=== PATIENT | female | born 1940 | race Caucasian/White ===

== ENCOUNTER → 2020-02-15 14:40 | Outpatient (CLI) | payer MEDICARE, OTHER, SELFPAY ==
--- NOTE | 2020-02-15 | DI.MRI.S_ITS ---
PROCEDURE: MR CERVICAL SPINE WO CON INDICATIONS: RADICULOPATHY, CERVICAL REGION TECHNIQUE: Noncontrast sagittal T1 spin echo and T2 fast spin echo, sagittal STIR, foraminal oblique sagittal T2 fast spin echo, and axial gradient echo or T2 fast spin echo through the cervical spine. COMPARISON: None. FINDINGS: Image quality: Excellent. Alignment and Curvature: There is loss of normal cervical lordosis. There is mild, grade 1 retrolisthesis of C2 on C3, C5 on C6, and C6 on C7. There is mild grade 1 anterolisthesis of C7 on T1 and T1 on T2. Bone Marrow: Marrow demonstrates normal overall signal. There is moderate reactive signal within the endplates adjacent to the C5-C6 and C6-C7 intervertebral discs. Mild reactive signal within the endplates adjacent to the C2-C3, C3-C4, and C4-C5 intervertebral discs. Spinal Cord: Visualized spinal cord has normal size and signal. No cerebellar tonsillar herniation. Paraspinous Soft Tissues: No paravertebral masses. Prevertebral soft tissues are normal in thickness. C2-C3: Congenital canal stenosis. There is moderate disc desiccation and moderate diffuse disc bulge with superimposed left paracentral protrusion. Mild facet and uncovertebral hypertrophy bilaterally. Moderate to severe canal stenosis. Minimal left cord flattening. Mild bilateral foraminal stenosis. C3-C4: Congenital canal stenosis. Moderate disc height loss and desiccation. Moderate diffuse disc bulge with superimposed small central protrusion and annular tear. Moderate facet and uncovertebral hypertrophy bilaterally. There is severe canal stenosis, mild cord flattening, and moderate bilateral foraminal stenosis, left greater than right. C4-C5: Congenital canal stenosis. Moderate disc height loss and desiccation. Mild diffuse disc bulge. Congenital canal stenosis. Moderate facet and uncovertebral hypertrophy bilaterally. Severe canal stenosis. Mild cord flattening. Severe left and moderate right foraminal stenosis. Left C5 nerve root compression. C5-C6: Congenital canal stenosis. Severe disc height loss and desiccation. Moderate diffuse disc bulge/osteophyte. Moderate facet and uncovertebral hypertrophy bilaterally. Severe canal stenosis. Moderate cord flattening. Severe bilateral foraminal stenosis. Bilateral C6 nerve compression. C6-C7: Congenital canal stenosis. Moderate disc height loss and desiccation. Moderate diffuse disc bulge. Moderate facet and uncovertebral hypertrophy bilaterally. Moderate to severe canal stenosis. Minimal anterior cord flattening. Severe bilateral foraminal stenosis. Bilateral C7 nerve root compression. C7-T1: Congenital canal stenosis. Moderate disc height loss and desiccation. Mild diffuse disc bulge. Mild facet and uncovertebral hypertrophy bilaterally. Moderate canal stenosis. Moderate right and mild left foraminal stenosis. IMPRESSION: 1. Diffuse congenital canal stenosis, with superimposed disc and facet disease, as well as uncovertebral hypertrophy. 2. Multilevel canal stenoses, with associated cord flattening at C2-C3, C3-C4, C4-C5, C5-C6, and C6-C7. 3. Multilevel foraminal stenoses, worst at C4-C5, C5-C6, and C6-C7, where there is associated intraforaminal nerve root compression. Recommend correlation with clinical symptoms to ascertain relevance of these findings. Dictated by: Maya Downey M.D. on 02/17/2020 at 8:29 Approved by: Maya Downey M.D. on 02/17/2020 at 8:41
== END ==
PROVIDERS: PCP Registered Nurse; Referring Provider Physical Medicine & Rehabilitation; Visit Provider Physical Medicine & Rehabilitation
DX: M50.11 Cervical disc disorder with radiculopathy, high cervical region (principal); M48.02 Spinal stenosis, cervical region
CPT/HCPCS: 72141

== ENCOUNTER → 2020-04-17 13:18 | Outpatient (CLI) | payer MEDICARE, OTHER, SELFPAY ==
[2020-04-18 18:25] LABS: COVID19 Sendout Not Detected (Not Detect)
== END ==
PROVIDERS: PCP Registered Nurse; Visit Provider Physician Assistant
DX: Z11.9 Encounter for screening for infectious and parasitic diseases, unspecified (principal)
CPT/HCPCS: 87635

== ENCOUNTER 2020-04-20 06:09 | Inpatient (IN) | payer MEDICARE, OTHER, SELFPAY ==
[2020-04-13 12:56] VITALS: BMI 23.1
[2020-04-20] VITALS (12 sets, daily range): BP systolic 118–166; BP diastolic 49–81; PULSE 79–95; RESP 10–17; TEMP 36.1–36.7; O2SAT 91–100; BMI 22.1
--- NOTE | 2020-04-20 | DI.RAD.S_ITS ---
PROCEDURE: XR CERVICAL SPINE 2V OR 3V INDICATIONS: ACDF C3-4 C4-5 C5-6 C6-7 TECHNIQUE: 3 view(s) of the cervical spine were acquired. COMPARISON: None. FINDINGS: Bones: Postoperative digital acquisition imaging shows C3 through C7 anterior fixation plate with transverse vertebral body screws at each of the intervening vertebral levels, with additional placement of interbody disc prosthesis from C3-4 through C6-7. Soft tissues: No prevertebral soft tissue swelling. IMPRESSION: No operative complication seen on this limited evaluation that clearly visualizes the C7 level fixation only on the frontal projection. Interbody disc prosthesis devices seen at the intervening disc levels and appear normally positioned where well seen. Dictated by: Andrew Styles M.D. on 04/20/2020 at 11:27 Approved by: Andrew Styles M.D. on 04/20/2020 at 11:30
[2020-04-20] MEDS: LACTATED RINGERS 1,000 ML 42 ML IV ×2 (07:00→09:47)
[2020-04-20] MEDS: CEFAZOLIN 2 GM/100 ML FROZ.PIGGY IV (07:00)
--- NOTE | 2020-04-20 07:40 | PM.PREOP ---
Pre-operative Note COVID-19 COVID-19 status: Negative Result date/Date tested (Pos, Neg/Pending): 04/18/20 Interval Note History & Physical reviewed/Exam performed by Physician: Yes Changes to H&P: No
--- NOTE | 2020-04-20 08:21 | SUR.OPER ---
Supine, head on gel donut. Arms padded with gel pads, tucked at sides, towel roll under shoulders. Safety belt at thigh. Legs uncrossed.
[2020-04-20] MEDS: BUPIVACAINE 0.25% W/ EPI 30 ML VIAL INJ (08:34)
--- NOTE | 2020-04-20 11:21 | P.OP_ITS ---
Operative Date/Time/Diagnoses Date of procedure: 04/20/20 Time of procedure: 08:21 Pre-op diagnosis: 1. C3-4, C4-5, C5-6, C6-7 spinal stenosis 2. C3-4, C4-5, C5-6, C6-7 spondylosis with radiculopathy Post-op diagnosis: same Procedure & Clinicians Procedure: 1. C3-4 C4-5 C5-6 C6-7 anterior cervical diskectomy and fusion 2. C3-4 C4-5 C5-6 C6-7 anterior interbody cage placement 3. C3-4 C4-5 C5-6 C6-7 anterior instrumentation with plate and screw placement in C3-C4-C5-C6 and C7 vertebrae 4. Utilization of microsurgical technique and operating microscope Same procedure as scheduled: Yes Indications: Patient has been having chronic neck pain and worsening cervical radiculopathy. Patient failed multiple conservative management with worsening pain weakness and numbness in her upper extremity. Patient has been having difficulty performing activity of daily living. After discussing risks benefits of treatment options, patient elected proceed with surgery. Surgeon: Zachary Angel [employer] Manager: Rod Kumar Click Yes if Unassisted: No Anesthesia Type: General Operative Notes Closure Type: primary Specimen(s): none sent Prosthetic devices, grafts, tissues, transplants, or devices: Globus extend plate, PEEK cages Estimated Blood Loss (mL): 50 Blood products transfused: none Procedure in detail: Using lateral C-arm imaging, the level between C3 and C7 was identified and marked on patient's neck. A oblique incision from midline towards medial border of sternocleidomastoid muscle was made. The platysma muscle was incised in line with skin incision. Metzenbaum scissor was used to develop the plane between the medial border of sternocleidomastoid d and the strap muscles medially. The carotid sheath and its contents were identified and protected behind the hand-held retractor during the entire case. The plane between the carotid sheath and strap muscles was developed with Metzenbaum scissors. Dissection was made down to the level of the anterior cervical fascia. Longus colli muscle was incised on the anterior aspect of vertebral bodies bilaterally from C3-C7. Spinal needle was placed into the C4-5 disc space and confirmed with lateral C-arm imaging. Using microsurgical technique and operative microscope, anterior cervical diskectomy was performed at C3-4 C4-5 C5-6 and C6-7 level. This was done by removing the disc material, removing the anterior and posterior osteophytes posterior longitudinal ligaments along with performing bilateral foraminotomies at all 4 levels. Patient was found to have severe central and foraminal stenosis at all 4 levels. Patient's stenosis was fully decompressed after dec ompression was completed. After the diskectomy was completed, 4 anterior interbody cages were obtained. The cages were packed with DBM bone grafting material. One cage each along with the bone grafting material was then packed into the interbody spaces from C3-C7 with 1 cage into each interbody level. After the cages were placed, the anterior cervical plate was stabilized to the C3-C7 vertebrae using 2 screws at each each level. Total 10 screws were placed. After confirming placement of the hardware with AP and lateral C-arm imaging, the screws were locked into the plate using the locking mechanism and torque limiting screwdriver. After the hardware was placed and confirmed with AP and lateral C-arm imaging, the wound was irrigated with sterile normal saline. The platysma muscle and the subcutaneous tissue was closed with 2-0 Vicryl. The skin was closed with 4-0 Monocryl and Steri-Strips. Patient tolerated the procedure well. Patient was transferred recovery room in stable condition. There were no complications. Complications: none Post-operative Condition: stable Disposition: PACU Plan for aftercare: Admit to inpatient hospital
[2020-04-20] MEDS: SODIUM CHLORIDE 0.9% 1,000 ML 100 ML IV (12:29)
[2020-04-20] MEDS: OXYCODONE IR 5 MG TABLET PO (12:45)
[2020-04-20] MEDS: ACETAMINOPHEN 325 MG TABLET 650 MG PO (12:46)
[2020-04-20] MEDS: CEFAZOLIN 1 GM/50 ML FROZ.PIGGY IV ×2 (14:48→22:15)
--- NOTE | 2020-04-20 15:10 | PT.IIE ---
Current Diagnoses Other spondylosis with myelopathy, cervical region (04/20/20) Spinal stenosis, cervical region (04/20/20) Surgery Performed Operation Date: 04/20/20 07:45 Actual Procedures p C3-4, C4-5, C5-6, C6-7 ACDF w/ instrumentation - Zachary Angel MD Surgical History (Last Updated 04/13/20 @ 13:14 by Ghazal Santacruz RN) History of carpal tunnel surgery of right wrist (Acute) Hx of appendectomy (Acute) Hx of bilateral cataract extraction (Acute) Hx of tonsillectomy (Acute) Hx of tubal ligation (Acute) Medical History (Last Updated 04/13/20 @ 13:14 by Ghazal Santacruz RN) Arthritis (Acute) Easy bruisability (Acute) History of trigger finger (Acute) HLD (hyperlipidemia) (Acute) HTN (hypertension) (Acute) PAF (paroxysmal atrial fibrillation) (Acute) Sciatica (Acute) Vulvar cancer (Acute) Physical Therapy Inpatient Evaluation/Re-Eval M1 PT/OT-IP Prior Functional Status Start: 04/20/20 12:57 Freq: NEEDED Status: Active Protocol: Document 04/20/20 14:40 AW (Rec: 04/20/20 15:10 AW [id number]) Medical Review Prior Functional Status Medical History Reviewed Yes Communication No known deficits. Mobility and Gait Pt is right handed. She ambulated independently at baseline without meaningful limitation. Activities of Daily Living and IADL's IND Prior Functional Level (Other details) Pt is an active boom truck driver. Social History Household Members spouse Living Arrangements House Number of Floors (Floors) One Floor Number of Stairs To Enter/Railing? 3 HERNAN with wide bilateral rails Home Environment Standard Height Toilet,Walk in Shower Home Equipment Hand Held Shower Employment Status Retired Additional Social History Comment Pt lives with her , Viraj, who is also retired. He will be available and able to assist as needed when pt discharges. M2 PT-IP Current Condition Start: 04/20/20 12:57 Freq: NEEDED Status: Active Protocol: Document 04/20/20 14:40 AW (Rec: 04/20/20 15:10 AW [id number]) Physical Therapy Current Condition Current Condition Evaluation Date 04/20/20 Treatment Diagnosis C3-7 ACDF; difficulty in walking; impaired self-care Onset Date 04/20/20 Precautions Anterior Hip Precautions No Hip Extension Cervical Spine Precautions Soft Collar for Comfort,No Heavy Lifting,Log Roll Brace soft collar for comfort M3 PT-IP Subjective Start: 04/20/20 12:57 Freq: NEEDED Status: Active Protocol: Document 04/20/20 14:40 AW (Rec: 04/20/20 15:10 AW [id number]) Subjective Physical Therapy Visit Type Type Initial Evaluation Visit Start Time 13:36 Visit Stop Time 13:59 Total Visit Minutes 23 Notes Pt's spouse was present throughout evaluation Physical Therapy Visit Comments Patient Comments Pt is feeling foggy but willing to work with PT Patient Goals Pt hopes to go home and regain full use of her hands Therapy Pain Assessment Pain When Pain Assessed During Mobility Pain Present Pain Present Pain Reported Location Neck Intensity 3 Scale Used Numeric (0 - 10) Pain Behaviors Facial Grimacing,Wincing Pain Management Techniques Re-positioning,Timing of Activity with Medications M4 PT-IP Mobility and Gait Start: 04/20/20 12:57 Freq: NEEDED Status: Active Protocol: Document 04/20/20 14:40 AW (Rec: 04/20/20 15:10 AW [id number]) PT-Bed Mobility Assessment Rolling Type of Rolling Log Rolling,Roll to Right Level of Assist Contact Guard Assistance Supine to Sit Supine to Sit Contact Guard Assistance Sit to Supine Sit to Supine Contact Guard Assistance Scooting Scooting to Edge of Bed Standby Assistance PT-Transfer Assessment Sit to and From Stand Sit to and from Stand Contact Guard Assistance Equipment Transfer Assistive Device Gait Belt Orthotic/Prosthetic Devices or Brace: Yes Transfers Transfer Destination Bed Transfer Technique pt ambulated without AD Transfer Ability Level of Assist Contact Guard Assistance,1 Person Assistance,Use of Upper Extremities Comments Mobility Comments Pt was reclined in the bed when PT arrived. She was able to tolerate lying flat. Supine BP was 162/76 HR 83. She completed log roll to her right side CGA and cues for sequencing; she completed sidelying to sit CGA without complaint of increased pain. Pt did reports mild lightheadedness in sitting. BP was 162/78 HR 88. She was able to stand at the edge of the bed but immediately reached for this PT's arm to steady herself. PT provided CGA as pt ambulated to the sink where she was provided instruction in donning and doffing the soft collar. Pt stated her lightheadedness was persisting and requested return to bed. She walked back to the bed with CGA and sat EOB. BP after 2 minutes sitting was 156/84. She completed sit to supine CGA and was repositioned in the bed with call light and all needs in reach, spouse at the bedside. Gait Assessment Gait Gait Assistance Required: Contact Guard Assist Distance (Feet) 10 Assistive Devices Assistive Device Gait Belt Gait Deviations General Gait Pattern Antalgic,Decreased Stride Length,Decreased Feet Clearance,Flexed Trunk,Lateral Trunk Lean Factors Limiting Gait Function Factors Limiting Gait Function Decreased Activity Tolerance, Decreased Sensation,Decreased Strength,Limited Range of Motion,Pain,Poor Balance,Poor Safety Awareness Comments Gait Comments Pt required CGA at all times for short bout ambulation without AD. See mobility comments for details. Stair Climbing Assessment Comments Stair Climbing Comments Not assessed. PT-Balance Assessment Sitting Balance and Reactions Static Sitting Balance Ability Normal Dynamic Sitting Balance Ability Normal Standing Balance and Reactions Static Standing Balance Ability Fair Dynamic Standing Balance Ability Fair Device Used no AD M5 PT-IP Objective Assessments Start: 04/20/20 12:57 Freq: NEEDED Status: Active Protocol: Document 04/20/20 14:40 AW (Rec: 04/20/20 15:10 AW [id number]) Orientation Orientation/Cognition Level of Alertness Lethargic Orientation Name,Day of Week,Place, Situation Language Function Ability No Deficits Noted Safety Awareness Decreased Safety Awareness Comments Pt oriented but lethargic, occasionally having difficulty keeping her eyes open. Gross Range of Motion Upper Extremity ROM Assessment Within Functional Limits Lower Extremity ROM Assessment Within Functional Limits Strength Upper Extremity Strength Assessment Within Functional Limits Lower Extremity Strength Assessment Within Functional Limits Coordination Assessment Gross Coordination Gross Coordination WNL Sensation Assessment Sensation Gross Sensation Right UE Impaired Light Touch Impaired Sensation Description Numbness Comments Sensation Comments Pt reports dull light touch sensation to right hand, especially the ulnar digits. Muscle Tone Muscle Tone WNL Yes M6 PT-IP Treatment Start: 04/20/20 12:57 Freq: NEEDED Status: Active Protocol: Document 04/20/20 14:40 AW (Rec: 04/20/20 15:10 AW [id number]) Physical Therapy Treatment Education Education Provided Precautions,Post-Op Packet, Safety Brace Education Donning,[place],Patient Other Treatments Other Treatment Performed Provided education on role of PT and plan of care. Pt was left with handout detailing swallow concerns after cervical surgery and symptoms that should be reported to the surgeon. Pt was taught to don and doff the soft collar using mirror for visual feedback. M7 PT-IP Assessment and Plan Start: 04/20/20 12:57 Freq: NEEDED Status: Active Protocol: Document 04/20/20 14:40 AW (Rec: 04/20/20 15:10 AW [id number]) PT Summary Assessment and Plan Potential Rehabilitation Potential Good Status of Condition at Evaluation Evolving Summary Impairments Pain,ROM,Balance,Sensation,Bed Mobility,Transfers,Gait, Activity Tolerance Assessment Summary Sujatha is a 80 yo woman seen for PT evaluation on POD0 following C3-4 C4-5 C5-6 C6-7 ACDF. She is independent in all regards at baseline. She lives with her spouse who is retired and able/available to assist as needed at discharge. On evaluation, pt was groggy and had difficulty attending to task at times but was redirectable. She required CGA for all mobility but is expected to progress enough during her hospital stay to discharge home safely with her spouse assisting. Goals Bed Mobility Goal Standby Assistance Transfer Goal Standby Assistance Gait Goal Standby Assistance Gait Distance 150 Other Goals - up/down 3 stairs with unilateral rail SBA Days to Meet Goals 2 Frequency of Treatment Frequency Of Treatment Twice a Day Treatment Plan Physical Therapy Treatment Plan Bed Mobility Training,Transfer Training,Gait Training, Therapeutic Exercise,Balance Retraining,Post Op Education, Discharge Planning,Hot or Cold Pack,Neuromuscular Re-ed Other Recommendations and Next Treatment review precautions, review Focus donning/doffing soft collar; progress gait and assess for possible AD needs; assess safety on stairs Recommendations To Nursing Amount of Assist Needed 1 Person Assist Discharge Recommendations PT Discharge Recommendations Home with Assistance Transportation Needs at Discharge Private Vehicle
--- NOTE | 2020-04-20 15:25 | PC.NURSE ---
Post-op: Late entry Arrived to room 221 at 1205. Awake and alert, oriented X3. VSS, room air. Dressing to anterior neck C/D/I, soft collar in place PRN for comfort. CMS+, denied paresthesias. Medicated with Tylenol and Oxycodone per e-mar, which she reported was effective for pain management. Swallowed without difficulty, pain or s/sx aspiration. Tolerating PO's without N/V. Nguyen patent to gravity, urine clear yellow. SCD's to bilateral feet. Oriented to room and call light and encouraged to make needs known. Call light and belongings within reach, bed alarm on.
[2020-04-20] MEDS: SENNOSIDES 8.6 MG TABLET 17.2 MG PO (20:51)
[2020-04-20] MEDS: SIMVASTATIN 20 MG TABLET PO (20:51)
[2020-04-20] MEDS: DOCUSATE 100 MG CAPSULE PO (20:51)
[2020-04-20] MEDS: AMITRIPTYLINE 10 MG TABLET PO (20:51)
[2020-04-20] MEDS: LATANOPROST 0.005% OPHTH 2.5 ML 1 DROPS EYE-BOTH (20:57)
[2020-04-21 00:14] VITALS: BP 131/63; PULSE 85; RESP 16; TEMP 36.3; O2SAT 96
[2020-04-21 05:03] VITALS: BP 138/70; PULSE 73; RESP 16; TEMP 36.3; O2SAT 97
--- NOTE | 2020-04-21 05:48 | PC.NURSE ---
Addendum entered by Vangie Dowell R.N. 04/21/20 05:54: Pt drsg to back is CDI Original Note: Pt has declined offers of pain medication so far this shift. Moving independently in bed, falk patient.
[2020-04-21] MEDS: OXYCODONE IR 5 MG TABLET PO ×2 (07:16→11:14)
[2020-04-21] MEDS: ACETAMINOPHEN 325 MG TABLET 650 MG PO (07:16)
[2020-04-21 07:40] VITALS: BP 142/66; PULSE 80; RESP 18; TEMP 36.6; O2SAT 97
[2020-04-21] MEDS: lisinopriL 10 MG TABLET PO (09:04)
[2020-04-21] MEDS: DOCUSATE 100 MG CAPSULE PO (09:04)
--- NOTE | 2020-04-21 09:42 | OT.IP.EVAL ---
Current Diagnoses Other spondylosis with myelopathy, cervical region (04/20/20) Spinal stenosis, cervical region (04/20/20) Surgery Performed Operation Date: 04/20/20 07:45 Actual Procedures p C3-4, C4-5, C5-6, C6-7 ACDF w/ instrumentation - Zachary Angel MD Past Medical History (Last Updated 04/13/20 @ 13:14 by Ghazal Santacruz, RN) Arthritis (Acute) Easy bruisability (Acute) History of trigger finger (Acute) HLD (hyperlipidemia) (Acute) HTN (hypertension) (Acute) PAF (paroxysmal atrial fibrillation) (Acute) Sciatica (Acute) Vulvar cancer (Acute) Surgical History (Last Updated 04/13/20 @ 13:14 by Ghazal Santacruz RN) History of carpal tunnel surgery of right wrist (Acute) Hx of appendectomy (Acute) Hx of bilateral cataract extraction (Acute) Hx of tonsillectomy (Acute) Hx of tubal ligation (Acute) Occupational Therapy Inpatient Evaluation/Re-Eval M1 PT/OT-IP Prior Functional Status Start: 04/20/20 12:57 Freq: NEEDED Status: Active Protocol: Document 04/20/20 14:40 AW (Rec: 04/20/20 15:10 AW [id number]) Medical Review Prior Functional Status Medical History Reviewed Yes Communication No known deficits. Mobility and Gait Pt is right handed. She ambulated independently at baseline without meaningful limitation. Activities of Daily Living and IADL's IND Prior Functional Level (Other details) Pt is an active truck driver flatbed. Social History Household Members spouse Living Arrangements House Number of Floors (Floors) One Floor Number of Stairs To Enter/Railing? 3 HERNAN with wide bilateral rails Home Environment Standard Height Toilet,Walk in Shower Home Equipment Hand Held Shower Employment Status Retired Additional Social History Comment Pt lives with her , Viraj, who is also retired. He will be available and able to assist as needed when pt discharges. M1 PT/OT-IP Prior Functional Status Start: 04/21/20 10:38 Freq: NEEDED Status: Active Protocol: Document 04/21/20 09:58 CCC (Rec: 04/21/20 10:50 CCC [email or web address]) Medical Review Prior Functional Status Medical History Reviewed Yes Communication No known deficits. Mobility and Gait Pt is right handed. She ambulated independently at baseline without meaningful limitation. Activities of Daily Living and IADL's IND Prior Functional Level (Other details) Pt is an active truck driver flatbed. Social History Household Members spouse Living Arrangements House Number of Floors (Floors) One Floor Number of Stairs To Enter/Railing? 3 HERNAN with wide bilateral rails Home Environment Standard Height Toilet,Walk in Shower Home Equipment Hand Held Shower Employment Status Retired Additional Social History Comment Pt lives with her , Viraj, who is also retired. He will be available and able to assist as needed when pt discharges. M2 OT-IP Current Condition Start: 04/21/20 10:38 Freq: Status: Active Protocol: Document 04/21/20 09:58 [facility] (Rec: 04/21/20 10:50 [facility] [id number]) Occupational Therapy Current Condition Current Condition Evaluation Date 04/21/20 Treatment Diagnosis Spinal stenosis, s/p C3-4, c4- 5, c5-6 ,C6-7 ACDF Diagnosis Onset Date 04/20/20 Post Operative Precautions Cervical Spine Precautions Soft Collar for Comfort,No Heavy Lifting,Log Roll M3 OT- IP Subjective and Pain Start: 04/21/20 10:38 Freq: Status: Active Protocol: Document 04/21/20 09:58 [facility] (Rec: 04/21/20 10:50 [facility] [id number]) OT- Subjective Occupational Therapy Visit Type Type Initial Evaluation Visit Start Time 09:42 Visit Stop Time 09:57 Total Visit Minutes 15 Occupational Therapy Visit Comments Patient Comments Pt already up in the room when OT came to see pt. Patient/Caregiver Goals To go home. OT Pain Assessment Pain When Pain Assessed At Rest Pain Present Pain Present Denied Pain M4 OT- IP ADL's Start: 04/21/20 10:38 Freq: Status: Active Protocol: Document 04/21/20 09:58 [facility] (Rec: 04/21/20 10:50 [facility] [id number]) OT [id number] General Evaluation Self-Feeding Ability Independent Comments OT Self-Feeding Comments Educated to sit upright more and chew food thoroughly, information given to pt regarding swallowing needs/ suggestions after ACDF sx. OT ADL-Dressing General Eval Upper Body Dressing Ability Independent Lower Body Dressing Ability Independent OT ADL-Bathing Comments OT Bathing Comments Went over information to shower from chest dwon, or able to put soft collar in the dryer if wet. Otherwise can assist to wash her hair with the [facility]. M5 OT- IP IADL's Start: 04/21/20 10:38 Freq: Status: Active Protocol: Document 04/21/20 09:58 [facility] (Rec: 04/21/20 10:50 [facility] [id number]) OT-Instrumental Activities of Daily Living Home Safety Awareness Awareness of Need for Assistance at Home Good Awareness Ability to Problem Solve Emergency Able to Problem Solve Situations Medication Management Medication Management Comments Pt aware to have her assist as needed. Money Management Money Management Comments Pt aware to have her assist as needed. Meal Preparation Meal Preparation Caregiver Provides Assist Title One Teacher Title One Teacher Caregiver Provides Assist M6 OT- IP Functional Cognition Start: 04/21/20 10:38 Freq: Status: Active Protocol: Document 04/21/20 09:58 [facility] (Rec: 04/21/20 10:50 [facility] [email or web address]) Cognitive Factors Limiting Selfcare Function Cognitive Ability Level of Alertness Alert Patient Orientation Name,Age,Birthday,Month,Date, Year,Day of Week,Place, Situation Attention Span Ability Capable of Focused Attention, Capable of Sustained Attention Ability to Follow Commands Able to Follow Multi-Step Commands Memory Description No Deficits Noted Safety Awareness Decreased Ability to Apply Precautions Cognitive Comments Cognitive Assessment Comments Pt a bit impulsive and needing cues to slow down and thinks things through before moving. M7 OT- IP Mobility and Balance Start: 04/21/20 10:38 Freq: Status: Active Protocol: Document 04/21/20 09:58 [facility] (Rec: 04/21/20 10:50 [facility] [email or web address]) OT-Transfer Assessment Sit to and From Stand Sit to and from Stand Independent Transfers Transfer Ability Standby Assistance Comments Mobility Comments Mainly distant SBA, vc to slow down. OT- Balance Assessment Sitting Balance and Reactions Static Sitting Balance Ability Normal Dynamic Sitting Balance Ability Normal Standing Balance and Reactions Static Standing Balance Ability Normal Dynamic Standing Balance Ability Good M8 OT- IP Objective Assessments Start: 04/21/20 10:38 Freq: Status: Active Protocol: Document 04/21/20 09:58 [facility] (Rec: 04/21/20 10:50 [facility] [email or web address]) OT-Muscle Tone Assessment Muscle Tone WNL Yes M9 OT- IP Assessment and Plan Start: 04/21/20 10:38 Freq: Status: Active Protocol: Document 04/21/20 09:58 [facility] (Rec: 04/21/20 10:50 [facility] [email or web address]) OT Summary Assessment and Plan Potential Rehabilitation Potential Good Analytic Complexity at Evaluation Low Summary OT Impairments Functional Mobility,Bathing Progress Towards Goals Progressing Toward Goals Assessment Summary Pt low complexity and main barriers are a little impulsive and needing to slow down. Pt has good understanding for all OT needs and has a supportive to assist her at home. Pt looking to go home today. Goals Shower Transfer Goal Independent Patient/Caregiver Education Goal Demonstrate Post-Op Precautions Days to Meet Goals 1 Frequency of Treatment Frequency Of Treatment Once a Day Treatment Plan OT Treatment Plan Functional Mobility,Patient/ Family Education,Discharge Planning Other Treatment Recommendations and Next shower if still here Treatment Focus Discharge Recommendations OT Discharge Recommendations Home with Assistance
--- NOTE | 2020-04-21 10:39 | P.DS_ITS ---
History of Present Illness History of Present Illness Date Patient Seen: 04/21/20 Time Patient Seen: 10:39 Chief complaint: Cervical Fusion Anterior Narrative: Patient has been having chronic neck pain and worsening cervical radiculopathy. Patient failed multiple conservative management with worsening pain weakness and numbness in her upper extremity. Patient has been having difficulty performing activity of daily living. After discussing risks benefits of treatment options, patient elected proceed with surgery. Discharge Providers Provider Date of admission: 04/20/20 06:09 Discharge Date: 04/21/20 Primary care physician: Thelma Chase Consults: 04/20/20 12:16 Consult to Occupational Therapy Evaluate & Treat Comment: Physician Instructions: Evaluate and treat Consult to Physical Therapy Evaluate & Treat Comment: Physician Instructions: Evaluate and Treat Discharge provider: Rod Kumar PA-C Summary Hospital Course Discharge Diagnosis: 1. C3-4, C4-5, C5-6, C6-7 spinal stenosis 2. C3-4, C4-5, C5-6, C6-7 spondylosis with radiculopathy Hospital Course: [place] [address] Operative Note Patient: Naomie Lucio LMR#: [id number] : 1Acct:[id number] Age/Sex: 80 / F Date of Service: 04/20/20 Provider: Zachary Angel MD Operative Date/Time/Diagnoses Date of procedure: 04/20/20 Time of procedure: 08:21 Pre-op diagnosis: 1. C3-4, C4-5, C5-6, C6-7 spinal stenosis 2. C3-4, C4-5, C5-6, C6-7 spondylosis with radiculopathy Post-op diagnosis: same Procedure & Clinicians Procedure: 1. C3-4 C4-5 C5-6 C6-7 anterior cervical diskectomy and fusion 2. C3-4 C4-5 C5-6 C6-7 anterior interbody cage placement 3. C3-4 C4-5 C5-6 C6-7 anterior instrumentation with plate and screw placement in C3-C4-C5-C6 and C7 vertebrae 4. Utilization of microsurgical technique and operating microscope Same procedure as scheduled: Yes Indications: Patient has been having chronic neck pain and worsening cervical radiculopathy. Patient failed multiple conservative management with worsening pain weakness and numbness in her upper extremity. Patient has been having difficulty performing activity of daily living. After discussing risks benefits of treatment options, patient elected proceed with surgery. Surgeon: Zachary Angel Senior Applications Architect: Rod Kumar Click Yes if Unassisted: No Anesthesia Type: General Operative Notes Closure Type: primary Specimen(s): none sent Prosthetic devices, grafts, tissues, transplants, or devices: Globus extend plate, PEEK cages Estimated Blood Loss (mL): 50 Blood products transfused: none Exam Vital Signs (past 8 hours): - 04/21/20 05:03 04/21/20 07:40 Temperature 97.4 F L 97.9 F Pulse Rate 73 80 Respiratory Rate 16 18 Blood Pressure 138/70 142/66 H Pulse Oximetry 97 97 Oxygen Delivery Method Room Air Oxygen Flow Rate 0 Narrative Exam Narrative: NAD, motor function intact bilat. UE, Sensation intact to light touch bilat. UE. Dressing CDI. Discharge Assessment & Plan Assessment and Plan Assessment: POD 1, improving, DC home today Discharge Plan Discharge Plan Patient Disposition: Home Discharge orders & Medications Prescriptions: New acetaminophen 325 mg Tablet 650 mg PO Q6HR PRN (Reason: Pain, Mild (1-3)) Qty: 60 RF: 0 oxycodone 5 mg Tablet 5 mg PO Q3HR PRN (Reason: Pain, Moderate (4-6)) Qty: 40 RF: 0 hydroxyzine pamoate 25 mg Capsule 25 mg PO Q4HR PRN (Reason: Nausea And Vomiting) Qty: 20 RF: 0 Continued latanoprost 0.005 % Drops 1 drp EYE-BOTH BEDTIME RF: 0 aspirin 81 mg Tablet,Delayed Release (Dr/Ec) 81 mg PO DAILY RF: 0 amitriptyline 10 mg Tablet 10 mg PO BEDTIME RF: 0 simvastatin 20 mg Tablet 20 mg PO BEDTIME RF: 0 lisinopril 10 mg Tablet 10 mg PO DAILY RF: 0 Follow up/Referrals: Thelma Chase [Primary Care Provider] - Zachary Angel MD [Physician] - (2 wks) Diet/Activity/Treatments Diet: Diet as Tolerated Activity: Limit bending, twisting, lifting Cold/Heat Therapy: ice as needed Other treatments: Soft collar for comfort Skin/Wound/Dressing Care Report to your healthcare provider any signs of infection, such as:: chills, fever, increased pain, unusual drainage and unusual redness Dressing: Keep clean and dry Visit Report/Discharge Packet Instructions: DI for Prescription Opioid Use, DI for Anterior Cervical Discectomy and Fusion Stand Alone Forms: Surgery Discharge Discharge Data Primary Care Provider: Thelma Chase VTE Deep Vein Thrombosis/Pulmonary Embolism Present on Admission: No
--- NOTE | 2020-04-21 10:47 | CM.DANOTE ---
DCP: Case received, EMR reviewed and met with patient. Introduced self and role. Was able to obtain information from patient regarding her baseline activity level prior to surgery. DCP assessment completed with information currently available. Patient is a 80 year old female who admitted yesterday morning to the care of the orthopedic team. PCP: Dr. Chase. Payer: confirmed: Medicare/[employer]. Patient came to the hospital via private vehicle for a surgical procedure. She had a C3-7 ACDF cervical diskectomy fusion. Patient has history of spinal stenosis. Met with patient. She was sitting up in bed, pleasant, alert and oriented. Patient is independent at baseline, lives in [place] with her , Viraj. He is supportive, and will be assisting her with any needs when she goes home. Patient is discharging home today. Patient is retired, as well as her , he is retired [employer]. She is active, had hobbies at home that keep her busy. P: Patient is to be discharged home today with no needs. Palmira Humphrey RN/Sample Room Supervisor
--- NOTE | 2020-04-21 11:22 | PT.IPTN ---
Note reviewed by Ines Casiano PTA Current Diagnoses Other spondylosis with myelopathy, cervical region (04/20/20) Spinal stenosis, cervical region (04/20/20) Surgery Performed Operation Date: 04/20/20 07:45 Actual Procedures p C3-4, C4-5, C5-6, C6-7 ACDF w/ instrumentation - Zachary Angel MD Physical Therapy Treatment Note M2 PT-IP Current Condition Start: 04/20/20 12:57 Freq: NEEDED Status: Active Protocol: Document 04/21/20 09:09 TP (Rec: 04/21/20 11:09 TP [id number]) Physical Therapy Current Condition Current Condition Evaluation Date 04/20/20 Treatment Diagnosis C3-7 ACDF; difficulty in walking; impaired self-care Onset Date 04/20/20 Precautions Anterior Hip Precautions No Hip Extension Cervical Spine Precautions Soft Collar for Comfort,No Heavy Lifting,Log Roll Brace soft collar for comfort M3 PT-IP Subjective Start: 04/20/20 12:57 Freq: NEEDED Status: Active Protocol: Document 04/21/20 09:09 TP (Rec: 04/21/20 11:09 TP [id number]) Subjective Physical Therapy Visit Type Type Treatment Note Visit Start Time 09:09 Visit Stop Time 09:32 Total Visit Minutes 23 Notes Student ALESSANDRO Moreno supervised by ALESSANDRO Matos. Physical Therapy Visit Comments Patient Comments Pt agreeable to participate with PT. Pt denies dizziness/ lightheadedness. Request to use restroom. Patient Goals Pt hopes to go home and regain full use of her hands M4 PT-IP Mobility and Gait Start: 04/20/20 12:57 Freq: NEEDED Status: Active Protocol: Document 04/21/20 09:09 TP (Rec: 04/21/20 11:09 TP [id number]) PT-Bed Mobility Assessment Rolling Type of Rolling Log Rolling,Roll to Right Level of Assist Contact Guard Assistance, Minimal Assistance,1 Person Assistance Supine to Sit Supine to Sit Contact Guard Assistance, Minimal Assistance,1 Person Assistance Sit to Supine Sit to Supine Contact Guard Assistance, Minimal Assistance,1 Person Assistance Scooting Scooting to Edge of Bed Standby Assistance PT-Transfer Assessment Sit to and From Stand Sit to and from Stand Standby Assistance Equipment Transfer Assistive Device Gait Belt Orthotic/Prosthetic Devices or Brace: Yes Transfers Transfer Destination Bed,Chair Transfer Technique pt ambulated without AD Transfer Ability Level of Assist Standby Assistance,Contact Guard Assistance Comments Mobility Comments Pt sitting reclined in bed upon arrival. Nurse had just removed Nguyen. Pt agreeable to participate with PT but urgent need to use restroom. Pt education in log roll to sit. Pt impulsive, sitting straight up and getting up to use restroom. Pt stand to sit at toilet to void and don new brief SBA. Ambulation from toilet to sink to wash hands, then to R EOB SBA. Stand to sit, SBA. New gown and gait belt donned. Pt donned soft collar backwards describing improper fit. Pt education for proper donning of soft collar. Pt states it feels much better and comfortable donned correctly. Sit to stand, SBA. Ambulation into hallway, down to stairs CGA. Ascend/descend 3 stairs, L handrail ascending, L handrail descending as pt has bilateral handrails at home, SBA. Ambulation back to room SBA, for total distance of approximately 350'. Pt stand to sit at R EOB SBA. Education for proper log roll technique in steps. Log roll R x 3. Pt is impulsive and has difficulty slowing down movements to protect spine. Sit to stand, step pivot transfer to chair SBA. Positioned upright in chair with call light and all other needs within reach. Pt called significant other to come for caregiver training. Will provide split tx for caregiver training when he arrives. Gait Assessment Gait Gait Assistance Required: Standby Assistance,Contact Guard Assist,1 Person Assist Distance (Feet) 350 Assistive Devices Assistive Device Gait Belt Gait Deviations General Gait Pattern Antalgic,Decreased Stride Length,Decreased Feet Clearance,Flexed Trunk,Lateral Trunk Lean Factors Limiting Gait Function Factors Limiting Gait Function Decreased Activity Tolerance, Decreased Sensation,Decreased Strength,Limited Range of Motion,Pain,Poor Balance,Poor Safety Awareness Comments Gait Comments See mobility comments. Ambulation SBA-CGA without AD approx. 350ft. Stair Climbing Assessment Evaluation Level of Assist On Stairs Standby Assistance Technique/Endurance Stair Climbing Direction Ascend and Descend Stair Climbing Technique Step Over Step Number of Steps Climbed 3 Stair Climbing Set # Repetitions (reps) 1 Comments Stair Climbing Comments See mobility comments. PT-Balance Assessment Sitting Balance and Reactions Static Sitting Balance Ability Normal Dynamic Sitting Balance Ability Normal Standing Balance and Reactions Static Standing Balance Ability Fair Dynamic Standing Balance Ability Fair Device Used no AD M5 PT-IP Objective Assessments Start: 04/20/20 12:57 Freq: NEEDED Status: Active Protocol: Document 04/20/20 14:40 AW (Rec: 04/20/20 15:10 AW [id number]) Orientation Orientation/Cognition Level of Alertness Lethargic Orientation Name,Day of Week,Place, Situation Language Function Ability No Deficits Noted Safety Awareness Decreased Safety Awareness Comments Pt oriented but lethargic, occasionally having difficulty keeping her eyes open. Gross Range of Motion Upper Extremity ROM Assessment Within Functional Limits Lower Extremity ROM Assessment Within Functional Limits Strength Upper Extremity Strength Assessment Within Functional Limits Lower Extremity Strength Assessment Within Functional Limits Coordination Assessment Gross Coordination Gross Coordination WNL Sensation Assessment Sensation Gross Sensation Right UE Impaired Light Touch Impaired Sensation Description Numbness Comments Sensation Comments Pt reports dull light touch sensation to right hand, especially the ulnar digits. Muscle Tone Muscle Tone WNL Yes M6 PT-IP Treatment Start: 04/20/20 12:57 Freq: NEEDED Status: Active Protocol: Document 04/21/20 09:09 TP (Rec: 04/21/20 11:09 TP [id number]) Physical Therapy Treatment Education Education Provided Precautions,Safety Brace Education [place],Patient M7 PT-IP Assessment and Plan Start: 04/20/20 12:57 Freq: NEEDED Status: Active Protocol: Document 04/21/20 09:09 TP (Rec: 04/21/20 11:09 TP [id number]) PT Summary Assessment and Plan Potential Rehabilitation Potential Good Status of Condition at Evaluation Evolving Summary Impairments Pain,ROM,Balance,Sensation,Bed Mobility,Transfers,Gait, Activity Tolerance Assessment Summary Pt ambulates and manages stairs safely. She is impulsive and education was provided to slow down and think through movements to perform them in a safeway. Pt has difficulty performing the log roll for bed mobility and would benefit from caregiver training, to have someone assist with verbal and tactile cues at home. Pt's significant other will be here later today to complete caregiver training. Pt is clear to discharge from PT upon completion of caregiver training, when medically stable. Goals Bed Mobility Goal Standby Assistance Transfer Goal Standby Assistance Gait Goal Standby Assistance Gait Distance 150 Other Goals - up/down 3 stairs with unilateral rail SBA Days to Meet Goals 2 Frequency of Treatment Frequency Of Treatment Twice a Day Treatment Plan Physical Therapy Treatment Plan Bed Mobility Training,Transfer Training,Gait Training, Therapeutic Exercise,Balance Retraining,Post Op Education, Discharge Planning,Hot or Cold Pack,Neuromuscular Re-ed Other Recommendations and Next Treatment caregiver training, review Focus precautions, review donning/ doffing soft collar; progress gait and assess for possible AD needs; assess safety on stairs Recommendations To Nursing Amount of Assist Needed 1 Person Assist Discharge Recommendations PT Discharge Recommendations Home with Assistance Transportation Needs at Discharge Private Vehicle
--- NOTE | 2020-04-21 12:01 | PC.NURSE ---
Discharge: IV dc'd intact. Patient was cleared by OT and PT, PT did training with patient's prior to d/c. All instructions reviewed thoroughly with patient and . Given scripts for Tylenol, Vistaril and Oxycodone. She already has f/u scheduled. Instructed to keep dressing dry and intact and to leave on until follow up. Patient verbalized understanding of d/c info and stated no further questions. All belonging sent with patient at discharge. Wheeled out to private vehicle by nursing staff.
== END 2020-04-21 12:04 | disposition home or self-care (01) | DRG 472 ==
PROVIDERS: Admitting Provider Orthopaedic Surgery Orthopaedic Surgery of the Spine; PCP Registered Nurse; Referring Provider Orthopaedic Surgery Orthopaedic Surgery of the Spine; Visit Provider Orthopaedic Surgery Orthopaedic Surgery of the Spine
PROC: 0RG20A0 Fusion of 2 or more Cervical Vertebral Joints with Interbody Fusion Device, Anterior Approach, Anterior Column, Open Approach (ICD-10-PCS; principal; 2020-04-20 07:45)
DX: M48.02 Spinal stenosis, cervical region (principal); M47.12 Other spondylosis with myelopathy, cervical region; I10 Essential (primary) hypertension; E78.5 Hyperlipidemia, unspecified; M47.22 Other spondylosis with radiculopathy, cervical region; Z11.59 Encounter for screening for other viral diseases
CPT/HCPCS: 72040; 76000; 87635; 97116; 97161; 97165; 97530; C1776; J0690; J1100; J1170; J2250; J2405; J2704; J3010